=== PATIENT | male | born 1935 | race Two or more races ===

== ENCOUNTER 2019-12-06 02:27 | Inpatient (IN) | payer MEDICARE ==
[~2019-12-06] VITALS: Ht 170.2 cm; Wt 56.7 kg
--- NOTE | 2019-12-06 02:35 | NUR ---
Patient brought in by rescue ambulance 90 for fever and shortness of breath from [facility]. Placed in bed 1A. Patient noted tachypneic, tachycardic and with rectal temp noted 100.6. Dr. Garcia made aware. Dr. Garcia at bedside on patient's arrival. Patient placed on bedside monitor. EKG done by Zeeshan NGUYEN. Awaiting MD orders.
[2019-12-06] MEDS ORDERED: VANCOMYCIN IV 1,000 MG in IV DEXTROSE 5% 250 ML IV ONE (02:45)
[2019-12-06] MEDS ORDERED: IV NORMAL SALINE 1000 ML BAG IV ONE (02:45)
[2019-12-06] MEDS ORDERED: GENTAMICIN SULFATE INJ 80 MG in IV DEXTROSE 5% 100 ML IV ONE (02:45)
[2019-12-06] MEDS ORDERED: CEFTRIAXONE 1 G in IV DEXTROSE 5% 50 ML IV ONE (02:45)
[2019-12-06] MEDS ORDERED: CEFTRIAXONE 1 G VIAL ONE (02:54)
--- NOTE | 2019-12-06 03:14 | NUR ---
Zuleta catheter inserted using sterile technique. Tolerated well.
[2019-12-06] MEDS ORDERED: GENTAMICIN SULFATE 80 MG/2 ML VIAL ONE (03:16)
[2019-12-06 03:19] LABS: CREATININE 0.9 mg/dL (0.6-1.3); POTASSIUM 3.6 mmol/L (3.5-5.1)
[2019-12-06 03:20] LABS: BASOPHILS % (AUTO) 0.2 % (0.0-2.0); EOSINOPHILS % (AUTO) 0.1 % (0.0-7.0); HEMATOCRIT 28.8 % (36.7-47.1); HEMOGLOBIN 9.3 g/dL (12.5-16.3); MEAN CORPUSCULAR HEMOGLOBIN 31.1 uug (23.8-33.4); MEAN CORPUSCULAR HGB CONC 33 g/dL (32.5-36.3); MEAN CORPUSCULAR VOLUME 95.7 fL (73.0-96.2); MONOCYTES # (AUTO) 0.6 K/uL (2.0-10.0); MONOCYTES % (AUTO) 4.1 % (0.0-11.0); NEUTROPHILS # (AUTO) 12.5 K/uL (1.8-8.9); NEUTROPHILS % (AUTO) 82.6 % (38.5-71.5); PLATELET COUNT (AUTO) 423 K/uL (152-348); WHITE BLOOD COUNT (AUTO) 15.2 K/uL (3.6-10.2)
[2019-12-06 03:32] LABS: BILIRUBIN,DIRECT 0.3 mg/dL (0.0-0.2); BILIRUBIN,TOTAL 0.6 mg/dL (0.2-1.0); TOTAL PROTEIN, SERUM 7.6 g/dL (6.4-8.2)
--- NOTE | 2019-12-06 04:25 | NUR ---
requested for neil bed from [facility]
--- NOTE | 2019-12-06 04:35 | NUR ---
Recieved rm [id number]
--- NOTE | 2019-12-06 04:54 | NUR ---
Spoke with Shahnaz at [facility], stated Dr. Dudley is transformation lead and will page her.
--- NOTE | 2019-12-06 04:56 | NUR ---
Dr. Garcia speaking with Dr. Dudley
--- NOTE | 2019-12-06 04:58 | NUR ---
per Dr. Garcia, Dr. Dudley accepted the patient.
--- NOTE | 2019-12-06 05:00 | NUR ---
spoke with Stiven in [facility], states he does not have a nurse for the patient and he will call back in a few.
[2019-12-06] MEDS ORDERED: VANCOMYCIN IV 200 ML ONE (05:03)
[2019-12-06 05:31] LABS: *BILIRUBIN,URIN NEGATIVE (NEGATIVE); *BLOOD, URINE NEGATIVE (NEGATIVE); *CLARITY,URINE CLEAR (CLEAR); *COLOR,URINE YELLOW (YELLOW); *KETONES,URINE TRACE (NEGATIVE); LEUKOCYTE ESTERASE ,URINE NEGATIVE (NEGATIVE); NITRITE, URINE NEGATIVE (NEGATIVE); UGLUCOSE NEGATIVE (NEGATIVE)
--- NOTE | 2019-12-06 05:36 | NUR ---
Report given to Lisseth NGUYEN in [place].
--- NOTE | 2019-12-06 06:10 | NUR ---
RECD PT VIA [facility] FROM ER,ACCOMPANIED BY ER NURSES AND RELATIVES.TRANFERRED TO BED,AND POSITIONED COMFORTABLY, COMPLAINTS OF FEVER AND TACHYPNEA.PT IS ON 100% MIST THRU TRACHEOSTOMY TUBE,ALERT ,ORIENTEDX1,IV SITE ONRT WRIST PATENT AND INTACT ,VANCOMYCIN IVPB INFUSING WELL W/O PROBLEMS.G TUBE IN PLACE, HANSEN CATH PATENT AND DRAINING FAIRLY WELL.RECTAL TUBE PRESENT W/ SMALL AMT OF FECAL MATERIAL NOTED ON THE BAG.SKIN WARM AND DRY TO TOUCH. ADMISSION CARE INITIATED.ON TELE-TD ACCOMODATION .
[2019-12-06] MEDS ORDERED: ACETAMINOPHEN 325 MG TABLET PO PRN (06:15)
[2019-12-06] MEDS ORDERED: ONDANSETRON 4 MG/2 ML VIAL IV PRN (06:15)
[2019-12-06] MEDS ORDERED: MAGNESIUM HYDROXIDE 30 ML LIQUID UDC PO PRN (06:15)
[2019-12-06] MEDS ORDERED: HYDROCODONE/APAP 5-325MG TABLET PO PRN (06:15)
[2019-12-06] MEDS ORDERED: ZOLPIDEM 5 MG TABLET PO PRN (06:15)
[2019-12-06] MEDS ORDERED: PIPERACILLIN SODIUM/TAZOBACTAM 3.375 G in IV DEXTROSE 5% 50 ML IV SCH (07:00)
[2019-12-06] MEDS ORDERED: PIPERACILLIN SODIUM/TAZOBACTAM 3.375 G in IV DEXTROSE 5% 50 ML IV ONE (07:00)
[2019-12-06 07:16] LABS: WBC,URINE 0-3 /HPF (0-3)
[2019-12-06 07:17] LABS: BACTERIA,URINE FEW /HPF (NONE SEEN); RBC,URINE 0-3 /HPF (0-3); SQUAMOUS EPITHELIAL CELL,UR FEW /HPF (NONE SEEN)
[2019-12-06 07:30] VITALS: BP 118/71
[2019-12-06 08:00] VITALS: BP 118/71
--- NOTE | 2019-12-06 08:00 | NUR ---
Family member at bedside. Fall, seizure, and aspiration precaution implemented. Noted old scab/scar on right medial toe. IV on right hand patent. Left side weakness noted. Pt has helmet on to protect craniotomy procedure done in SEP 2019. Pt alert x 2 forgetful at times. G-J tube intact and patent and audible in stomach without any residual noted. Rectal tube intact and draining liquid brown/black stool. Tele SNR @ 90's. Pt is in no acute distress. Call light is within reach.
--- NOTE | 2019-12-06 10:56 | NUR ---
CLINICAL PHARMACY NOTE: VANCOMYCIN PHARMACY TO DOSE Subjective: To start vancomycin in this 84 y/o male for indication of osteomyelitis. Also on zosyn Objective: weight 58kg height 170cm BUN/SCr 24/0.9 wbc 15.2 temp 98.4 1gm given in ER 12/06 ~0300 Assessment/Plan As renal function appears stable, will start vanco regimen of 1gm q20hrs for estimated trough of 16.17, second dose tonight at 2300. Will check trough before 4th scheduled dose (not ordered yet). Will also monitor renal function and adjust if were to change. Will follow
[2019-12-06 11:11] VITALS: BP 118/71
--- NOTE | 2019-12-06 11:30 | NUR ---
Notified Dr Kinney pt is diabetic and getting lantus. Awaiting orders for bs check.
--- NOTE | 2019-12-06 12:00 | NUR ---
Dr Kinney here to see patient. Awaiting medication reconciliation and admitting orders.
[2019-12-06] MEDS ORDERED: LORAZEPAM JT PRN (13:30)
[2019-12-06] MEDS ORDERED: METOCLOPRAMIDE HCL 10 MG/10 ML UDC JT PRN (13:30)
[2019-12-06] MEDS ORDERED: ALBUTEROL SULFATE 2.5 MG/ 0.5 ML NEBU NEB PRN ×2 (13:30→14:30)
[2019-12-06] MEDS ORDERED: SIMETHICONE 40 MG/0.6 ML, 30ML BOTTLE JT PRN (13:30)
[2019-12-06] MEDS ORDERED: LORAZEPAM JT SCH (13:30)
[2019-12-06] MEDS: PIPERACILLIN/TAZOBACTAM/D5W 3.375 G in IV DEXTROSE 5% 50 ML IV SCH ×2 (14:29→22:10)
[2019-12-06] MEDS ORDERED: LORAZEPAM 0.5 MG TABLET JT PRN (14:45)
[2019-12-06] MEDS ORDERED: LORAZEPAM 0.5 MG TABLET GT PRN (15:50)
[2019-12-06] MEDS ORDERED: METOCLOPRAMIDE HCL 10 MG/10 ML UDC GT PRN (15:50)
[2019-12-06] MEDS ORDERED: MAGNESIUM HYDROXIDE 30 ML LIQUID UDC GT PRN (15:50)
[2019-12-06] MEDS ORDERED: SIMETHICONE 40 MG/0.6 ML, 30ML BOTTLE GT PRN (15:50)
[2019-12-06] MEDS ORDERED: ZOLPIDEM 5 MG TABLET GT PRN (15:51)
[2019-12-06] MEDS: CHLORHEXIDINE GLUCONATE 15 ML MOUTHWASH MM SCH (16:55)
[2019-12-06] MEDS: TRIAMCINOLONE ACET 0.1% OINT 60 GM TUBE TP SCH (16:55)
[2019-12-06] MEDS: FERROUS SULFATE 300 MG/5 ML LIQUID UDC GT SCH (16:56)
[2019-12-06] MEDS: POLYVINYL ALCOHOL OPHT DROPS 15 ML BOTTLE EACHEYE SCH ×2 (16:56→22:00)
[2019-12-06] MEDS: HYDROCODONE/APAP 5-325MG TABLET GT PRN (16:57)
[2019-12-06] MEDS ORDERED: LEVETIRACETAM 500 MG TABLET JT SCH (17:00)
[2019-12-06] MEDS ORDERED: DEXTRAN OP SCH (18:00)
[2019-12-06] MEDS ORDERED: HYPROMELLOSE OP SCH (18:00)
--- NOTE | 2019-12-06 18:30 | NUR ---
Pt is in no acute distress. Plan of care effective. Pt suctioned greenish/brown phlegm. Pt on Portex 8 with Pmist 28%. Trachea care done by R.T. Call light is within reach.
[2019-12-06] MEDS ORDERED: GLUCERNA 1.2 1000ML LIQUID GT SCH (20:30)
--- NOTE | 2019-12-06 20:30 | NUR ---
NOTIFY SANDRA KEE CUSTOMER RELATIONS ADVISOR THAT PATIENT IS DIABETIC AND PATIENT IS NPO, AND NO JT FEEDING. CHILANGO HAS NEW ORDER.
[2019-12-06 20:43] VITALS: BP 135/72
[2019-12-06] MEDS ORDERED: ASCORBIC ACID 100 MG JT SCH (21:00)
[2019-12-06] MEDS ORDERED: Medication Not On Formulary EA (Multivitamins W-Minerals (Multivitamin With Minerals) 1 JT SCH (21:00)
--- NOTE | 2019-12-06 23:01 | NUR ---
PATIENT HAS J TUBE RESIDUAL OF 400CC GREENISH COLOR, PATIENT IS NOT ON FEEDING AT ALL. NOTIFY SANDRA KEE WITH ORDER TO HOLD TUBE FEEDING AND MEDICATION AT THIS TIME. WILL MONITOR FOR RESIDUAL.
[2019-12-06] MEDS: IV D5/ 0.9% NACL 1,000 ML IV PRN (23:07)
[2019-12-06] MEDS: INSULIN GLARGINE,HUM 300 UNITS/3 ML CARTRIDGE SQ SCH (23:47)
[2019-12-07] VITALS: BP 128/61
--- NOTE | 2019-12-07 | NUR ---
J TUBE FEEDING CONTINUE TO HOLD AND MEDICATIONS WAS ON HOLD, PER MD ORDER. RECHECK J TUBE RESIDUAL OBTAINED 200CC GREENISH COLOR FLUIDS. ALL VIA J TUBE MEDICATIONS AND FLUSHES NOT GIVEN. WILL NOTIFY MD DEPUTY FIRE CHIEF.
--- NOTE | 2019-12-07 01:30 | NUR ---
NOTIFY DR. WALLER THAT PATIENT STILL HAS A RESIDUAL OF 200CC GREENISH FLUIDS DESPITE ALL VIA J TUBE MEDICATIONS AND FLUSHES NOT GIVEN, MD TO HOLD ALL MEDICATIONS AND FEEDING PLUS WATER FLUSHES AT THIS TIME.
[2019-12-07] MEDS: VANCOMYCIN IV 1,000 MG in IV DEXTROSE 5% 250 ML IV SCH ×2 (02:06→19:46)
[2019-12-07] MEDS: POLYVINYL ALCOHOL OPHT DROPS 15 ML BOTTLE EACHEYE SCH ×4 (02:45→19:47)
[2019-12-07 05:00] VITALS: BP 125/57
[2019-12-07] MEDS: PIPERACILLIN/TAZOBACTAM/D5W 3.375 G in IV DEXTROSE 5% 50 ML IV SCH ×3 (05:35→21:24)
--- NOTE | 2019-12-07 06:05 | NUR ---
PATIENT ALERT BUT FORGETFUL, NO SOB NO CHEST PAIN, PATIENT TRACH INTACT, SUCTION WITH MODERATE AMOUNT YELLOW COLOR SPUTUM. J TUBE INTACT, PATIENT HAS J TUBE RESIDUAL OF 200CC OF GREENISH COLOR FLUIDS. PATIENT RECTAL TUBE IRRIGATED WITH PASTY BROWNISH COLOR FECES IN SMALL AMOUNT. TURN AND REPOSITION, CONT TO MONITOR.
[2019-12-07 06:48] LABS: CREATININE 0.9 mg/dL (0.6-1.3); MAGNESIUM 1.7 mg/dL (1.8-2.4); PHOSPHOROUS 3.3 mg/dL (2.5-4.9); POTASSIUM 3.3 mmol/L (3.5-5.1)
[2019-12-07 07:07] LABS: BASOPHILS % (AUTO) 0.6 % (0.0-2.0); EOSINOPHILS # (AUTO) 0.1 K/uL (0.0-0.7); EOSINOPHILS % (AUTO) 1.4 % (0.0-7.0); MONOCYTES # (AUTO) 0.4 K/uL (2.0-10.0); NEUTROPHILS # (AUTO) 5.7 K/uL (1.8-8.9)
[2019-12-07 07:19] LABS: LYMPHOCYTES # (AUTO) 1.4 K/uL (20.0-40.0); LYMPHOCYTES % (AUTO) 18.5 % (20.5-51.5); MEAN CORPUSCULAR HGB CONC 33 g/dL (32.5-36.3); MEAN CORPUSCULAR VOLUME 96.9 fL (73.0-96.2); MONOCYTES % (AUTO) 5.1 % (0.0-11.0); NEUTROPHILS % (AUTO) 74.4 % (38.5-71.5); RED BLOOD CELL COUNT(AUTO) 2.35 MIL/uL (4.06-5.63)
[2019-12-07 07:20] LABS: HEMATOCRIT 22.8 % (36.7-47.1); HEMOGLOBIN 7.5 g/dL (12.5-16.3); PLATELET COUNT (AUTO) 296 K/uL (152-348); WHITE BLOOD COUNT (AUTO) 7.7 K/uL (3.6-10.2)
[2019-12-07 07:54] VITALS: BP 123/62
--- NOTE | 2019-12-07 08:00 | NUR ---
Pt is in no acute distress. Pt more awake today than yesterday. Pt able to talk with his daughter with single words. Tele SNR @ 90's again. Skin care and prevention implemented to turn pt q 2 hrs. PT has a GJ tube labeled jejunum and gastric on the Y tube. No residual on G tube side of the G-J tube. Pt had 50cc residual noted on the J TUBE side of the GJ TUBE. Will check with hospitalist when and where the feeding will be inserted Jejunum vs Gastric.
[2019-12-07] MEDS: TRIAMCINOLONE ACET 0.1% OINT 60 GM TUBE TP SCH ×2 (08:51→16:14)
[2019-12-07] MEDS: FERROUS SULFATE 300 MG/5 ML LIQUID UDC GT SCH ×2 (08:51→16:14)
[2019-12-07] MEDS: SPIRONOLACTONE 25 MG TABLET GT SCH ×3 (08:51→21:03)
[2019-12-07] MEDS: CHLORHEXIDINE GLUCONATE 15 ML MOUTHWASH MM SCH ×2 (08:51→16:15)
[2019-12-07] MEDS: LEVETIRACETAM 500 MG/5 ML LIQUID UDC GT SCH ×3 (08:51→21:03)
[2019-12-07] MEDS ORDERED: ASCORBIC ACID 500 MG TABLET JT SCH (09:00)
--- NOTE | 2019-12-07 09:08 | NUR ---
CLINICAL PHARMACY NOTE: VANCOMYCIN PHARMACY TO DOSE Subjective: To continue vancomycin in this 84 y/o male for indication of osteomyelitis. Also on zosyn Objective: weight 58kg height 170cm BUN/SCr 18/0.9 wbc 7.7 temp 97.7 Trough pending tomorrow at 1430 Assessment/Plan As renal function appears stable, will continue vanco regimen of 1gm q20hrs for estimated trough of 16.17, third dose tonight at 1900. Will check trough before 4th scheduled dose (due tomorrow at 1430). Will check level when available and adjust as appropriate. Will follow
--- NOTE | 2019-12-07 09:30 | NUR ---
Witnessed pt's daughter Deana giving pt sips of water. Instructed family not to give anything oral on pt until cleared by ST. Daughter verbalized understanding.
--- NOTE | 2019-12-07 10:00 | NUR ---
Pt seen by Physical therapy for evaluation.
[2019-12-07] MEDS ORDERED: POTASSIUM CHLORIDE 20 MEQ POWDER PACKET GT ONE ×3 (10:30→12:45)
[2019-12-07] MEDS ORDERED: POTASSIUM CHLORIDE 10 MEQ TAB.PRT.SR PO SCH (10:45)
[2019-12-07] MEDS: MAGNESIUM SULFATE/D5W 100 ML IV SCH ×2 (11:18→12:55)
[2019-12-07 11:36] VITALS: BP 127/59
--- NOTE | 2019-12-07 12:00 | NUR ---
Feedings to be restarted at the Jejunum tube side of the GJtube. Per old record notes from [facility] discharge summary. Awaiting for dietary evaluation on proper feedings and goal rate.
[2019-12-07 15:36] VITALS: BP 119/53
--- NOTE | 2019-12-07 18:04 | NUR ---
Start feeding per dietary recommendations pt has 25cc residual on the JEJUNUM side of the GJTUBE. Will start feeding at slow rate of 10cc/hr as ordered. PT is in no acute distress.
[2019-12-07] MEDS: HYDROCODONE/APAP 5-325MG TABLET GT PRN (18:30)
[2019-12-07 20:00] VITALS: BP 114/57
[2019-12-07] MEDS ORDERED: DEXTROSE 50% 50 ML DISP.SYRIN IV PRN (20:00)
--- NOTE | 2019-12-07 20:00 | NUR ---
Received patient lying in bed. Asleep, arouse to tactile stimuli. In no acute distress. Tracheostomy in place. O2 at 6LPM via trach. O2 at 98%. Sinus tachy on tele at 104/min. IV site on right FA and right wrist intact and patent. IVF infusing on right wrist area. GJ tube intact and patent. No residual noted on both G Tube and J tube when aspirated. Zuleta catheter intact and draining via gravity. Rectal tube intact with moderate amount of stool noted. Daughter at bedside. Continue to monitor.
[2019-12-07] MEDS: VITAL AF 1.2 1,000 ML LIQUID GT PRN (20:33)
--- NOTE | 2019-12-07 20:33 | NUR ---
Started on Vital 1.2 10cc/hr via J tube. Continue to monitor.
[2019-12-07] MEDS: SENNOSIDES 1 TABLET GT SCH ×2 (21:00)
[2019-12-07] MEDS: ATORVASTATIN 40 MG TABLET GT SCH ×2 (21:03)
[2019-12-07] MEDS: ASCORBIC ACID 500 MG TABLET GT SCH ×2 (21:03)
[2019-12-07] MEDS: MULTIVIT, IRON, MIN NO. 8, FA TABLET GT SCH ×2 (21:04)
[2019-12-07] MEDS: INSULIN GLARGINE,HUM 300 UNITS/3 ML CARTRIDGE SQ SCH (21:05)
--- NOTE | 2019-12-07 21:22 | NUR ---
Senokot not given due to presence of stool on rectal tube.
--- NOTE | 2019-12-07 22:00 | NUR ---
Noted feeding pump not rotating. Replace feeding pump and started Vital 1.2 at 10cc/hr at this time.
[2019-12-08] VITALS (8 sets, daily range): BP systolic 102–134; BP diastolic 44–68
[2019-12-08] MEDS: BLOOD SUGAR DIAGNOSTIC 1 EACH STRIP VI SCH ×4 (00:11→17:10)
[2019-12-08] MEDS: IV D5/ 0.9% NACL 1,000 ML IV PRN (01:07)
--- NOTE | 2019-12-08 02:00 | NUR ---
Aspirated J tube noted with 15ml residual. G tube with no residual. Increased Vital 1.2 to 20cc/hr.
[2019-12-08] MEDS: POLYVINYL ALCOHOL OPHT DROPS 15 ML BOTTLE EACHEYE SCH ×4 (02:21→20:58)
[2019-12-08] MEDS: PIPERACILLIN/TAZOBACTAM/D5W 3.375 G in IV DEXTROSE 5% 50 ML IV SCH ×3 (05:55→21:01)
--- NOTE | 2019-12-08 06:30 | NUR ---
Aspirated J tube noted with no residual. G tube with no residual. Increased Vital 1.2 to 30cc/hr.
[2019-12-08] MEDS: INSULIN REGULAR, HUMAN 300 UNIT/3 ML VIAL SQ PRN (07:00)
--- NOTE | 2019-12-08 07:00 | NUR ---
Patient AAOX1-2. In no acute distress. Tracheostomy in place. O2 at 6LPM via trach. O2 at 98%. Suctioned secretions PRN. IV site on right FA and right wrist intact and patent.No adverse effect noted from IV ABX. GJ tube intact and patent. Vital 1.2 infusing at 30ml/hr. Zuleta catheter intact and draining via gravity. Rectal tube intact. Safety measure maintained and call arreola within reached.
[2019-12-08 07:12] LABS: BASOPHILS % (AUTO) 0.6 % (0.0-2.0); EOSINOPHILS # (AUTO) 0.2 K/uL (0.0-0.7); EOSINOPHILS % (AUTO) 3.2 % (0.0-7.0); HEMATOCRIT 21.2 % (36.7-47.1); LYMPHOCYTES # (AUTO) 1.5 K/uL (20.0-40.0); LYMPHOCYTES % (AUTO) 21.3 % (20.5-51.5); MEAN CORPUSCULAR HEMOGLOBIN 31.5 uug (23.8-33.4); MEAN CORPUSCULAR HGB CONC 33 g/dL (32.5-36.3); MEAN CORPUSCULAR VOLUME 96.4 fL (73.0-96.2); MONOCYTES # (AUTO) 0.3 K/uL (2.0-10.0); MONOCYTES % (AUTO) 4.6 % (0.0-11.0); NEUTROPHILS # (AUTO) 4.9 K/uL (1.8-8.9); NEUTROPHILS % (AUTO) 70.3 % (38.5-71.5); PLATELET COUNT (AUTO) 308 K/uL (152-348)
[2019-12-08 07:24] LABS: CREATININE 0.8 mg/dL (0.6-1.3); MAGNESIUM 1.9 mg/dL (1.8-2.4); PHOSPHOROUS 3.2 mg/dL (2.5-4.9); POTASSIUM 3.9 mmol/L (3.5-5.1)
--- NOTE | 2019-12-08 07:30 | NUR ---
Zero cc residual on the Jtube site tubing where feeding of Vital 30cc is running. zero residual Gtube site. Will increase to 40cc @1000am if pt tolerating feeding. Aspiration, seizure, and fall precaution implemented. Pt is in no acute distress. Call light is within reach.
[2019-12-08 07:31] LABS: HEMOGLOBIN 6.9 g/dL (12.5-16.3)
[2019-12-08 07:49] LABS: EOSINOPHILS % (MANUAL) 3 % (0-8); LYMPHOCYTES % (MANUAL) 13 % (20-40); MONOCYTES % (MANUAL) 4 % (2-10); NEUTROPHILS % (MANUAL) 80 % (42-75)
[2019-12-08] MEDS: CHLORHEXIDINE GLUCONATE 15 ML MOUTHWASH MM SCH ×2 (08:00→17:06)
[2019-12-08] MEDS: LEVETIRACETAM 500 MG/5 ML LIQUID UDC GT SCH ×2 (08:00→20:58)
[2019-12-08] MEDS: FERROUS SULFATE 300 MG/5 ML LIQUID UDC GT SCH ×2 (08:00→17:06)
[2019-12-08] MEDS: SPIRONOLACTONE 25 MG TABLET GT SCH ×2 (08:00→20:59)
[2019-12-08] MEDS: TRIAMCINOLONE ACET 0.1% OINT 60 GM TUBE TP SCH ×2 (08:00→17:07)
--- NOTE | 2019-12-08 10:00 | NUR ---
250 residual on Jtube site. Residual was greenish fluid. Stopped feeding. Notified hospitalist of residual. Pt tolerated physical therapy. Addendum: 12/08/19 at 1140 by DILCIA SINGH RN Gastric residual @ 50cc with greenish fluid as well.
--- NOTE | 2019-12-08 11:00 | NUR ---
250cc residual noted on JTUBE again and 100cc residual noted on gtube site. Hospitalist aware. Held tube feeding will recheck in 4 hrs for residual as ordered.
[2019-12-08] MEDS: HYDROCODONE/APAP 5-325MG TABLET GT PRN (11:13)
--- NOTE | 2019-12-08 12:00 | NUR ---
Sent stool for ob to lab.
[2019-12-08 14:21] LABS: *OCCULT BLOOD STOOL POSITIVE (NEGATIVE)
--- NOTE | 2019-12-08 15:15 | NUR ---
J-tube residual is 300cc and g tube residual is 10cc. pt positive stool for ob. Notified hospitalist will hold feeding and recheck in another 4 hrs.
--- NOTE | 2019-12-08 15:22 | NUR ---
CLINICAL PHARMACY NOTE: VANCOMYCIN PHARMACY TO DOSE Subjective: To continue vancomycin in this 84 y/o male for indication of osteomyelitis. Also on zosyn Objective: weight 58kg height 170cm BUN/SCr 14/0.8 wbc 7.0 temp 98.4 Trough on 12/08 at 1430: 16.7 Assessment/Plan Since vanco trough level is within therapeutic range, will continue same dose of vanco 1gm IVPB q20hrs for now. Will monitor renal function & adjust as appropriate. Will follow
--- NOTE | 2019-12-08 15:36 | NUR ---
Courtesy call made to DR Zambrano's office spoke with nita secretary administrative assistant for GI evaluation request of ida angulo.
[2019-12-08] MEDS: VANCOMYCIN IV 1,000 MG in IV DEXTROSE 5% 250 ML IV SCH (15:43)
--- NOTE | 2019-12-08 18:30 | NUR ---
bLOOD TRANSFUSION CONSENT signed by Deana Rice Daughter wtih DPOA. PT is in no acute distress. Call light is within reach. Called Lab ETA of blood In 3hrs. No fall noted this shift.
[2019-12-08] MEDS: MULTIVIT, IRON, MIN NO. 8, FA TABLET GT SCH (20:58)
[2019-12-08] MEDS: ASCORBIC ACID 500 MG TABLET GT SCH (20:59)
[2019-12-08] MEDS: ATORVASTATIN 40 MG TABLET GT SCH (20:59)
[2019-12-08] MEDS: SENNOSIDES 1 TABLET GT SCH (20:59)
[2019-12-08] MEDS: INSULIN GLARGINE,HUM 300 UNITS/3 ML CARTRIDGE SQ SCH (21:00)
[2019-12-09] VITALS (9 sets, daily range): BP systolic 112–129; BP diastolic 59–78
[2019-12-09] MEDS: BLOOD SUGAR DIAGNOSTIC 1 EACH STRIP VI SCH ×4 (00:08→17:43)
[2019-12-09] MEDS: POLYVINYL ALCOHOL OPHT DROPS 15 ML BOTTLE EACHEYE SCH ×4 (03:34→21:17)
[2019-12-09] MEDS: PIPERACILLIN/TAZOBACTAM/D5W 3.375 G in IV DEXTROSE 5% 50 ML IV SCH ×3 (05:12→22:36)
--- NOTE | 2019-12-09 06:42 | NUR ---
END OF SHIFT REPORT 1929 PT WAS REPOSITIONED; CLEANED PERIANALLY FOR RECTAL TUBE LEAKING; MANIPULATED RECTAL TUBE; 2029h FOLLOWED UP BLOOD FROM BLOOD BANK AND BLOOD NOT YET AVAILABLE; 2129 bLOOD NOT YET READY; NEEDS RETYPING PER CONE RUNNER; [address] Guillen 70 ML RESIDUAL FR JTUBE; PER DR OLSON TO START GTF PREVIOUSLY ORDERED PT RECEIVED HIS BLOOD WITHOUT COMPLICATIONS; REPOSITIONED AND MADE COMFORTABLE;
[2019-12-09 07:04] LABS: BASOPHILS # (AUTO) 0.1 K/uL (0.0-8.0); BASOPHILS % (AUTO) 0.7 % (0.0-2.0); EOSINOPHILS # (AUTO) 0.2 K/uL (0.0-0.7); EOSINOPHILS % (AUTO) 3.5 % (0.0-7.0); HEMATOCRIT 27.5 % (36.7-47.1); HEMOGLOBIN 9.3 g/dL (12.5-16.3); LYMPHOCYTES # (AUTO) 1.8 K/uL (20.0-40.0); LYMPHOCYTES % (AUTO) 25.6 % (20.5-51.5); MEAN CORPUSCULAR HGB CONC 34 g/dL (32.5-36.3); MEAN CORPUSCULAR VOLUME 92.1 fL (73.0-96.2); MONOCYTES # (AUTO) 0.4 K/uL (2.0-10.0); MONOCYTES % (AUTO) 5.5 % (0.0-11.0); NEUTROPHILS # (AUTO) 4.5 K/uL (1.8-8.9); NEUTROPHILS % (AUTO) 64.7 % (38.5-71.5); PLATELET COUNT (AUTO) 347 K/uL (152-348); RED BLOOD CELL COUNT(AUTO) 2.99 MIL/uL (4.06-5.63)
[2019-12-09 07:18] LABS: CREATININE 0.7 mg/dL (0.6-1.3); MAGNESIUM 1.6 mg/dL (1.8-2.4); PHOSPHOROUS 4.1 mg/dL (2.5-4.9); POTASSIUM 3.8 mmol/L (3.5-5.1)
--- NOTE | 2019-12-09 08:00 | NUR ---
RESTING COMFORTABLY IN BED WITH AEROSOL VIA TRACH AT 6L/28% MIST SATURATING 98%. GOOD ORAL CARE DONE. ASPIRATION PRECAUTION OBSERVED. AM CARE GIVEN WITH MAXIMUM ASSIST.
[2019-12-09] MEDS: FERROUS SULFATE 300 MG/5 ML LIQUID UDC GT SCH ×2 (09:23→16:13)
[2019-12-09] MEDS: SPIRONOLACTONE 25 MG TABLET GT SCH ×2 (09:23→22:25)
[2019-12-09] MEDS: LEVETIRACETAM 500 MG/5 ML LIQUID UDC GT SCH ×2 (09:23→22:25)
[2019-12-09] MEDS: CHLORHEXIDINE GLUCONATE 15 ML MOUTHWASH MM SCH ×2 (09:24→16:14)
[2019-12-09] MEDS: TRIAMCINOLONE ACET 0.1% OINT 60 GM TUBE TP SCH ×2 (09:24→16:14)
[2019-12-09] MEDS: Z GUARD REMEDY PASTE 57 GM TUBE TOP PRN (09:25)
[2019-12-09] MEDS: VANCOMYCIN IV 1,000 MG in IV DEXTROSE 5% 250 ML IV SCH (11:40)
[2019-12-09] MEDS: INSULIN REGULAR, HUMAN 300 UNIT/3 ML VIAL SQ PRN (11:44)
--- NOTE | 2019-12-09 11:45 | NUR ---
SEEN BY Jessica SINGH DNP MADE AWARE OF HIGH VOLUME RESIDUAL AND SAID TO CONTINUE FEEDING AT 30 ML/HR TOLERATED. SEE NOTES
[2019-12-09] MEDS: MAGNESIUM SULFATE/D5W 100 ML IV SCH ×2 (12:15→13:09)
--- NOTE | 2019-12-09 13:00 | NUR ---
SEEN BY DR ALVAREZ SEE NOTES PATIENT REMAINS SR ON MONITOR
--- NOTE | 2019-12-09 13:30 | NUR ---
SEEN BY SPEECH THERAPIST FOR EVAL. RECOMMENDED NPO AND FOLLOW-UP VIDEO SWALLOW IN AM
--- NOTE | 2019-12-09 14:33 | NUR ---
CLINICAL PHARMACY NOTE: VANCOMYCIN PHARMACY TO DOSE Subjective: To continue vancomycin in this 84 y/o male for indication of osteomyelitis. Also on zosyn Objective: weight 58kg height 170cm BUN/SCr 12/0.7 wbc 7.0 temp 98.3 Trough on 12/08 at 1430: 16.7 Assessment/Plan Since renal function has remained stable and vanco trough level is within therapeutic range, will continue same dose of vanco 1gm IVPB q20hrs for now. Will monitor renal function & adjust as appropriate. Will follow
--- NOTE | 2019-12-09 15:50 | NUR ---
1444 eyedrop not given patient is sleeping
[2019-12-09] MEDS: ACETAMINOPHEN 325 MG TABLET GT PRN (16:13)
--- NOTE | 2019-12-09 20:15 | NUR ---
@2000:TELEPHONE CALL TO CAIT SINGH, INFORMED THAT PATIENT HAS A RESIDUAL OF 1600ML ON GASTROSTOMY TUBE, DARK GREEN IN COLOR. JT WITH ONLY 30ML OF SHORT GOODS DRIER GREEN RESIDUAL AND PLACE BACK ON THE PATIENT. CAIT SINGH INSTRUCTED THIS NURSE TO DISCARD ALL CONTENT OBTAINED FROM GASTROSTOMY TUBE (1600ML) AND RECHECK RESIDUAL ON GASTROSTOMY TUBE EVERY 4 HOURS, GASTRIC CONTENT LESS THAN OR EQUAL TO 250ML TO PLACE BACK ON PATIENT STOMACH AND DISCARD GASTRIC CONTENT GREATER THAN 250ML. ORDER READ BACK AND VERIFIED. @2009:CAIT SINGH WITH ORDER TO DO CT ABD/PELVIS WITH CONTRAST. ORDER NOTED AND WILL CARRY OUT.
[2019-12-09] MEDS ORDERED: IOHEXOL 300MG/ML 100 ML INFUS..BTL ONE (20:31)
[2019-12-09] MEDS ORDERED: IV NORMAL SALINE 250 ML IV ONE (20:31)
[2019-12-09] MEDS ORDERED: SWABABLE VALVE TRANSFER SET EA MC ONE (20:31)
[2019-12-09] MEDS: SENNOSIDES 1 TABLET GT SCH (21:00)
--- NOTE | 2019-12-09 21:11 | NUR ---
PATIENT DAUGHTER SIGNED IC FOR CT ABDOMEN/PELVIS WITH CONTRAST. TELEPHONE CALL TO RADIOLOGIST TIMOTEO THAT PATIENT IS READY FOR CT.
--- NOTE | 2019-12-09 21:30 | NUR ---
PATIENT TAKEN TO CT ACCOMPANIED BY RT/DANIEL AND CHARGE NURSE DARRELL.
--- NOTE | 2019-12-09 22:02 | NUR ---
back from ct scan , procedure tolerated well, no acute distress noted. tele reading sinus.repositioned for comfort.
[2019-12-09] MEDS: MULTIVIT, IRON, MIN NO. 8, FA TABLET GT SCH (22:25)
[2019-12-09] MEDS: ASCORBIC ACID 500 MG TABLET GT SCH (22:25)
[2019-12-09] MEDS: ATORVASTATIN 40 MG TABLET GT SCH (22:25)
[2019-12-09] MEDS: INSULIN GLARGINE,HUM 300 UNITS/3 ML CARTRIDGE SQ SCH (22:26)
--- NOTE | 2019-12-09 23:12 | NUR ---
CT ABD/PELVIS WITH CONTRAST RESULTED AND INFORMED INFORMATION CLERK CASHIER SAMANTHA OF RESULT WITH NO NEW ORDER GIVEN. PATIENT ASLEEP AT THIS TIME AND APPEARS COMFORTABLE. IN NO ACUTE DISTRESS. SINUS TACHY ON TELE AT 101/MIN WITH OCCASIONAL PVC'S. CONTINUE TO MONITOR PATIENT.
[2019-12-10] VITALS (7 sets, daily range): BP systolic 118–127; BP diastolic 58–71
[2019-12-10] MEDS: BLOOD SUGAR DIAGNOSTIC 1 EACH STRIP VI SCH ×5 (00:31→23:13)
--- NOTE | 2019-12-10 01:00 | NUR ---
CHECKED GJ TUBE RESIDUAL. OBTAIN 100ML OF GREENISH GASTRIC CONTENT ON JT AND PLACED BACK TO STOMACH. OBTAINED 680ML ON GT, RETURNED 250ML BACK TO STOMACH AND DISCARDED 430ML.
[2019-12-10] MEDS: POLYVINYL ALCOHOL OPHT DROPS 15 ML BOTTLE EACHEYE SCH ×4 (02:29→21:13)
--- NOTE | 2019-12-10 05:00 | NUR ---
CHECKED GJ TUBE RESIDUAL. 55ML RESIDUAL GREENISH GASTRIC CONTENT ON JT AND PLACED BACK TO STOMACH. NO RESIDUAL ON GT.
[2019-12-10] MEDS: PIPERACILLIN/TAZOBACTAM/D5W 3.375 G in IV DEXTROSE 5% 50 ML IV SCH ×3 (05:11→21:52)
[2019-12-10] MEDS: VANCOMYCIN IV 1,000 MG in IV DEXTROSE 5% 250 ML IV SCH (06:03)
--- NOTE | 2019-12-10 06:41 | NUR ---
Asleep, arouse to verbal and tactile stimuli. In no acute distress. Tracheostomy in place. O2 at 6LPM via trach. O2 at 99%. suction secretions PRN and able to obtain whitish secretions. NSR with occasional PVC's on tele at 82/min. IV site on right FA and right wrist intact and patent. No adverse reaction noted from IV ABX. GJ tube intact and patent. Zuleta catheter intact and draining via gravity. Rectal tube intact with stool present on tubing only. Turn and reposition for comfort. Safety measure maintained.
[2019-12-10 06:56] LABS: BASOPHILS # (AUTO) 0.1 K/uL (0.0-8.0); EOSINOPHILS # (AUTO) 0.2 K/uL (0.0-0.7); EOSINOPHILS % (AUTO) 2.7 % (0.0-7.0); HEMATOCRIT 28.2 % (36.7-47.1); HEMOGLOBIN 9.6 g/dL (12.5-16.3); LYMPHOCYTES # (AUTO) 1.7 K/uL (20.0-40.0); LYMPHOCYTES % (AUTO) 28.7 % (20.5-51.5); MEAN CORPUSCULAR HEMOGLOBIN 31.1 uug (23.8-33.4); MEAN CORPUSCULAR HGB CONC 34 g/dL (32.5-36.3); MEAN CORPUSCULAR VOLUME 91.6 fL (73.0-96.2); MONOCYTES # (AUTO) 0.4 K/uL (2.0-10.0); MONOCYTES % (AUTO) 6.4 % (0.0-11.0); NEUTROPHILS # (AUTO) 3.7 K/uL (1.8-8.9); NEUTROPHILS % (AUTO) 61.2 % (38.5-71.5); PLATELET COUNT (AUTO) 379 K/uL (152-348); RED BLOOD CELL COUNT(AUTO) 3.08 MIL/uL (4.06-5.63)
[2019-12-10 07:07] LABS: CREATININE 0.8 mg/dL (0.6-1.3); MAGNESIUM 2.1 mg/dL (1.8-2.4); PHOSPHOROUS 4.3 mg/dL (2.5-4.9); POTASSIUM 3.2 mmol/L (3.5-5.1)
--- NOTE | 2019-12-10 08:00 | NUR ---
AWAKE ALERT AND VERBALLY RESPONSIVE NO SS OF PAIN OR DISTRESS. WITH 6L/AEROSOL VIA TRACH SATURATING 98%. HOB ELEVATED 45 DEGREES. ASPIRATION PRECAUTION OBSERVED. SR ON MONITOR
--- NOTE | 2019-12-10 09:03 | NUR ---
CLINICAL PHARMACY NOTE: VANCOMYCIN PHARMACY TO DOSE Subjective: To continue vancomycin in this 84 y/o male for indication of osteomyelitis. Also on zosyn Objective: weight 58kg height 170cm BUN/SCr 12/0.8 wbc 6.0 temp 98.4 Trough on 12/08 at 1430: 16.7 Assessment/Plan Since renal function has remained stable and vanco trough level is within therapeutic range, will continue same dose of vanco 1gm IVPB q20hrs for now. Will monitor renal function & adjust as appropriate. Will follow
[2019-12-10] MEDS: LEVETIRACETAM 500 MG/5 ML LIQUID UDC GT SCH ×2 (09:06→21:13)
[2019-12-10] MEDS: POTASSIUM CHLORIDE 20 MEQ POWDER PACKET GT SCH ×3 (09:06→13:41)
[2019-12-10] MEDS: FERROUS SULFATE 300 MG/5 ML LIQUID UDC GT SCH ×2 (09:06→17:18)
[2019-12-10] MEDS: SPIRONOLACTONE 25 MG TABLET GT SCH ×2 (09:07→21:14)
[2019-12-10] MEDS: TRIAMCINOLONE ACET 0.1% OINT 60 GM TUBE TP SCH ×2 (09:09→17:19)
[2019-12-10] MEDS: CHLORHEXIDINE GLUCONATE 15 ML MOUTHWASH MM SCH ×2 (09:09→17:22)
[2019-12-10] MEDS ORDERED: POTASSIUM CHLORIDE 20 MEQ POWDER PACKET GT ONE (11:30)
--- NOTE | 2019-12-10 11:56 | NUR ---
SEEN BY HOSPITALIST MADE AWARE OF GT/JJ STOMACH RESIDUAL AND LAB RESULTS WITH ORDERS. SEE NOTES
[2019-12-10] MEDS: PANTOPRAZOLE SODIUM 40 MG VIAL IV SCH ×2 (12:21→21:14)
[2019-12-10] MEDS: ACETAMINOPHEN 325 MG TABLET GT PRN (13:22)
[2019-12-10] MEDS ORDERED: BARIUM SULFATE 148 GM SUSP.RECON PO ONE (14:32)
[2019-12-10] MEDS ORDERED: BARIUM SULFATE 240 ML ORAL.SUSP PO ONE (14:32)
--- NOTE | 2019-12-10 16:00 | NUR ---
CONTINUE WITH [facility] STATUS, SR ON MONITOR. VIDEO SWALLOW DONE PER ST [facility] TO START PUREE/NECTAR THICK FOR SATIETY ONLY FOR BREAKFAST AND LUNCH. EDUCATION GIVEN TO FAMILY. PER HOSPITALIST HOLD FEEDING FOR NOW DUE TO HIGH VOLUME RESIDUAL
[2019-12-10] MEDS: Z GUARD REMEDY PASTE 57 GM TUBE TOP PRN (17:19)
--- NOTE | 2019-12-10 18:01 | NUR ---
LATEST JJ RESIDUAL @ 1800= 200 ML, GT RESIDUAL= 50 ML
[2019-12-10] MEDS: INSULIN GLARGINE,HUM 300 UNITS/3 ML CARTRIDGE SQ SCH (21:00)
[2019-12-10] MEDS: SENNOSIDES 1 TABLET GT SCH (21:00)
[2019-12-10] MEDS: ASCORBIC ACID 500 MG TABLET GT SCH (21:14)
[2019-12-10] MEDS: ATORVASTATIN 40 MG TABLET GT SCH (21:14)
[2019-12-10] MEDS: MULTIVIT, IRON, MIN NO. 8, FA TABLET GT SCH (21:14)
[2019-12-11 01:10] VITALS: BP 115/59
[2019-12-11] MEDS: POLYVINYL ALCOHOL OPHT DROPS 15 ML BOTTLE EACHEYE SCH ×4 (02:59→22:02)
[2019-12-11] MEDS: VANCOMYCIN IV 1,000 MG in IV DEXTROSE 5% 250 ML IV SCH ×2 (03:00→23:04)
[2019-12-11 04:00] VITALS: BP 125/65
[2019-12-11] MEDS: PIPERACILLIN/TAZOBACTAM/D5W 3.375 G in IV DEXTROSE 5% 50 ML IV SCH ×3 (06:04→21:34)
[2019-12-11] MEDS: BLOOD SUGAR DIAGNOSTIC 1 EACH STRIP VI SCH ×3 (06:04→18:31)
[2019-12-11 06:28] LABS: BASOPHILS # (AUTO) 0.1 K/uL (0.0-8.0); BASOPHILS % (AUTO) 0.8 % (0.0-2.0); EOSINOPHILS # (AUTO) 0.2 K/uL (0.0-0.7); EOSINOPHILS % (AUTO) 2.5 % (0.0-7.0); LYMPHOCYTES # (AUTO) 2.2 K/uL (20.0-40.0); LYMPHOCYTES % (AUTO) 29.9 % (20.5-51.5); MEAN CORPUSCULAR HEMOGLOBIN 31.4 uug (23.8-33.4); MEAN CORPUSCULAR HGB CONC 34 g/dL (32.5-36.3); MONOCYTES # (AUTO) 0.4 K/uL (2.0-10.0); MONOCYTES % (AUTO) 5.7 % (0.0-11.0); NEUTROPHILS # (AUTO) 4.5 K/uL (1.8-8.9); NEUTROPHILS % (AUTO) 61.1 % (38.5-71.5); PLATELET COUNT (AUTO) 417 K/uL (152-348); RED BLOOD CELL COUNT(AUTO) 3.35 MIL/uL (4.06-5.63); WHITE BLOOD COUNT (AUTO) 7.4 K/uL (3.6-10.2)
[2019-12-11 06:35] LABS: PHOSPHOROUS 3.8 mg/dL (2.5-4.9); POTASSIUM 4.3 mmol/L (3.5-5.1)
[2019-12-11 06:40] LABS: HEMATOCRIT 31.1 % (36.7-47.1); HEMOGLOBIN 10.5 g/dL (12.5-16.3)
--- NOTE | 2019-12-11 06:46 | NUR ---
KEPT RESTRAINTS ON TO PREVENT PT FROM PULLING OUT ANY LINES, GETS A HOLD OF ANYTHING Addendum: 12/11/19 at 0647 by ALE KNIGHT RN NOTE ON WRONG PT
[2019-12-11 07:30] VITALS: BP 129/63
--- NOTE | 2019-12-11 08:00 | NUR ---
Pt A/O x2 to person and place. Pt denied any pain or discomfort at this time. No distress noted or reported. VS stABLE. Inline suctioned trach. Scant amount thin white secretions, but pt with productive cough and then noted moderate amount thick yellow sputum. Aspiration and Seizure precautions in place. No SZ activity noted. Noted 40 cc green residual from pt's G tube. Returned residual per MD orders. All safety precautions in place. Monitoring continued.
[2019-12-11] MEDS: CHLORHEXIDINE GLUCONATE 15 ML MOUTHWASH MM SCH ×2 (08:39→17:45)
[2019-12-11] MEDS: LEVETIRACETAM 500 MG/5 ML LIQUID UDC GT SCH ×2 (08:39→21:30)
[2019-12-11] MEDS: SPIRONOLACTONE 25 MG TABLET GT SCH ×2 (08:39→21:30)
[2019-12-11] MEDS: PANTOPRAZOLE SODIUM 40 MG VIAL IV SCH ×2 (08:39→21:31)
[2019-12-11] MEDS: FERROUS SULFATE 300 MG/5 ML LIQUID UDC GT SCH ×2 (08:39→17:45)
[2019-12-11] MEDS: TRIAMCINOLONE ACET 0.1% OINT 60 GM TUBE TP SCH ×2 (08:41→17:46)
--- NOTE | 2019-12-11 11:06 | NUR ---
CLINICAL PHARMACY NOTE: VANCOMYCIN PHARMACY TO DOSE Subjective: To continue vancomycin in this 84 y/o male for indication of osteomyelitis. Also on zosyn Objective: weight 58kg height 170cm BUN/SCr 13/1.0 wbc 7.4 temp 97.9 Trough on 12/08 at 1430: 16.7 Assessment/Plan Since renal function has remained stable and vanco trough level is within therapeutic range, will continue same dose of vanco 1gm IVPB q20hrs for now. Will monitor renal function & adjust as appropriate. Will follow
[2019-12-11 11:20] VITALS: BP 133/69
--- NOTE | 2019-12-11 12:00 | NUR ---
Pt denied any pain or discomfort at this time. No distress noted or reported. VS stable. In-line suctioned trach. Scant amount thin white secretions, but pt still with productive cough and then noted moderate amount thick yellow sputum. Called RT to change tubing for T-Piece as large amount of dried sputum had accumulated. Suctioned T-piece area as much as possible with [place]. RT changed t-piece Tubing. Aspiration and Seizure precautions in place. No SZ activity noted. Noted 125 cc green residual from pt's G tube. Returned residual per MD orders. All safety precautions in place. Monitoring continued.
[2019-12-11] MEDS ORDERED: DIATR MEGLU/DIATRIZOATE SODIUM 30 ML SOLUTION ONE (13:24)
[2019-12-11] MEDS ORDERED: SIMETHICONE 80 MG TAB.CHEW GT PRN (14:45)
[2019-12-11] MEDS ORDERED: SIMETHICONE 80 MG TAB.CHEW PO PRN (14:45)
[2019-12-11] MEDS: ACETAMINOPHEN 325 MG TABLET GT PRN (15:54)
[2019-12-11 16:00] VITALS: BP 120/70
--- NOTE | 2019-12-11 18:32 | NUR ---
Notified Dr. Zambrano re: residual of 1000 ml green liquid from G tube. Ordered to discard all of residual instead of returning 250 ml residual to G tube. Pt getting last X-ray done now.
[2019-12-11] MEDS: IV D5/ 0.9% NACL 1,000 ML IV PRN (19:56)
[2019-12-11 20:55] VITALS: BP 126/70
[2019-12-11] MEDS: SENNOSIDES 1 TABLET GT SCH (21:00)
[2019-12-11] MEDS: INSULIN GLARGINE,HUM 300 UNITS/3 ML CARTRIDGE SQ SCH (21:00)
[2019-12-11] MEDS: ATORVASTATIN 40 MG TABLET GT SCH (21:30)
[2019-12-11] MEDS: MULTIVIT, IRON, MIN NO. 8, FA TABLET GT SCH (21:30)
[2019-12-11] MEDS: ASCORBIC ACID 500 MG TABLET GT SCH (21:30)
[2019-12-12] VITALS (7 sets, daily range): BP systolic 120–139; BP diastolic 41–69
[2019-12-12] MEDS: BLOOD SUGAR DIAGNOSTIC 1 EACH STRIP VI SCH ×4 (00:22→17:17)
[2019-12-12] MEDS: POLYVINYL ALCOHOL OPHT DROPS 15 ML BOTTLE EACHEYE SCH ×4 (03:00→21:27)
[2019-12-12] MEDS: PIPERACILLIN/TAZOBACTAM/D5W 3.375 G in IV DEXTROSE 5% 50 ML IV SCH ×3 (05:06→21:36)
[2019-12-12] MEDS: ACETAMINOPHEN 325 MG TABLET GT PRN (05:06)
[2019-12-12] MEDS: INSULIN REGULAR, HUMAN 300 UNIT/3 ML VIAL SQ PRN ×2 (05:20→11:40)
--- NOTE | 2019-12-12 05:51 | NUR ---
END OF SHIFT REPORT Patient rested well in between care; no acute distress; trache care done; GT site dressing done; repositioned for comfort; VSS; family at bedside; residual of JTUBE remains 150ml q4h and GT 75 ml q4h; incontinence care done;
--- NOTE | 2019-12-12 07:27 | NUR ---
Pt seen by Dr Zambrano; assessed GT and JT; spoke to patient's daughter; Dr Zambrano requested for a regular Gtube; Dr Zambrano replaced Gt/JT with regular GTube at bedside;
--- NOTE | 2019-12-12 07:40 | NUR ---
ordered Reglan and to restart GT feeding at 1000H; WENDY Pearce will put in orders as instructed
[2019-12-12] MEDS: CHLORHEXIDINE GLUCONATE 15 ML MOUTHWASH MM SCH ×2 (09:03→17:06)
[2019-12-12] MEDS: PANTOPRAZOLE SODIUM 40 MG VIAL IV SCH ×2 (09:03→21:27)
[2019-12-12] MEDS: FERROUS SULFATE 300 MG/5 ML LIQUID UDC GT SCH ×2 (09:03→17:00)
[2019-12-12] MEDS: LEVETIRACETAM 500 MG/5 ML LIQUID UDC GT SCH (09:03)
[2019-12-12] MEDS: SPIRONOLACTONE 25 MG TABLET GT SCH ×2 (09:03→20:41)
[2019-12-12] MEDS: TRIAMCINOLONE ACET 0.1% OINT 60 GM TUBE TP SCH ×2 (09:05→17:18)
--- NOTE | 2019-12-12 09:06 | NUR ---
CLINICAL PHARMACY NOTE: VANCOMYCIN PHARMACY TO DOSE Subjective: To continue vancomycin in this 84 y/o male for indication of osteomyelitis. Also on zosyn Objective: weight 58kg height 170cm BUN/SCr 13/1.0 (12/11) wbc 7.4 (12/11) temp 98.2 Trough on 12/08 at 1430: 16.7 Assessment/Plan Will continue same dose of vanco 1gm IVPB q20hrs for now. Will monitor renal function (BMP on order for tomorrow 12/12) & adjust as appropriate. Will follow Addendum: 12/12/19 at 1029 by DONNA DUMONT ADM LABS FROM TODAY: BUN 13 SRCR 1.1 WBC 6.4 SINCE SRCR HAS INCREASED, WILL REPEAT VANCO TROUGH LEVEL TODAY AT 1830- RN HAS BEEN INFORMED TO HOLD 1900 DOSE IF VANCO TROUGH LEVEL ABOVE 20 MCG/ML. PHARMACY SHALL REVIEW THE LEVEL IN AM & ADJUST THE DOSE IF NEEDED.
[2019-12-12 09:41] LABS: BASOPHILS # (AUTO) 0.1 K/uL (0.0-8.0); BASOPHILS % (AUTO) 0.9 % (0.0-2.0); EOSINOPHILS # (AUTO) 0.1 K/uL (0.0-0.7); EOSINOPHILS % (AUTO) 1.8 % (0.0-7.0); HEMATOCRIT 34.2 % (36.7-47.1); HEMOGLOBIN 11.4 g/dL (12.5-16.3); LYMPHOCYTES # (AUTO) 1.9 K/uL (20.0-40.0); LYMPHOCYTES % (AUTO) 29.4 % (20.5-51.5); MEAN CORPUSCULAR HGB CONC 33 g/dL (32.5-36.3); MEAN CORPUSCULAR VOLUME 93.6 fL (73.0-96.2); MONOCYTES # (AUTO) 0.4 K/uL (2.0-10.0); MONOCYTES % (AUTO) 7.1 % (0.0-11.0); NEUTROPHILS # (AUTO) 3.9 K/uL (1.8-8.9); NEUTROPHILS % (AUTO) 60.8 % (38.5-71.5); PLATELET COUNT (AUTO) 463 K/uL (152-348); RED BLOOD CELL COUNT(AUTO) 3.66 MIL/uL (4.06-5.63); WHITE BLOOD COUNT (AUTO) 6.4 K/uL (3.6-10.2)
[2019-12-12 09:51] LABS: BILIRUBIN,TOTAL 0.4 mg/dL (0.2-1.0); CREATININE 1.1 mg/dL (0.6-1.3); MAGNESIUM 1.9 mg/dL (1.8-2.4); PHOSPHOROUS 3.6 mg/dL (2.5-4.9); POTASSIUM 3.8 mmol/L (3.5-5.1); TOTAL PROTEIN, SERUM 6.7 g/dL (6.4-8.2)
[2019-12-12] MEDS: VITAL AF 1.2 1,000 ML LIQUID GT PRN (10:43)
--- NOTE | 2019-12-12 10:56 | NUR ---
A call to radiology to follow up on small bowel follow through. Spoke with Brady who'll call for finalized reading. Addendum: 12/12/19 at 1417 by GIOVANNI BARTON RN call made at around [phone] and documented at the above time.
--- NOTE | 2019-12-12 11:11 | NUR ---
PT's daughter and DPOA MsMikki Scott at bedside and she was given copies of latest labs, and imaging reading as requested. ( consent for release of information verified).
[2019-12-12] MEDS: IV D5/ 0.9% NACL 1,000 ML IV PRN (11:17)
--- NOTE | 2019-12-12 12:30 | NUR ---
patient with residual of 180cc attending N.P. in the unit and informed, orders to continue with current rate of feeding received and continue to check for residuals as ordered.
--- NOTE | 2019-12-12 13:10 | NUR ---
2nd call for results of small bowel test done yesterday this time ACCOUNTING REPRESENTATIVE Tana present and as informed by radiologist tech "She will call to follow up".
--- NOTE | 2019-12-12 13:35 | NUR ---
A call from Ms. Contreras on behalf of radiologist Dr. 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 Imaging results faxed from [facility] and informed to attending Attending PULMONARY PHYSICIAN Ms. Tana Broussard orders to place TF on hold received and implemented.
[2019-12-12] MEDS: HYDROCODONE/APAP 5-325MG TABLET GT PRN (13:58)
[2019-12-12] MEDS ORDERED: METOCLOPRAMIDE HCL 10 MG/2 ML VIAL IV SCH (14:00)
--- NOTE | 2019-12-12 19:10 | NUR ---
PATIENT ALERT VERBALLY RESPONSIVE. PATIENT ON TELE MONITOR SINUS RHYTHM AT THIS TIME. PATIENT REMAINS NPO, J TUBE INTACT, HANSEN CATH PATENT, PATIENT HAS NO COMPLAIN OF PAIN AT THIS TIME. CONT TO MONITOR.
[2019-12-12] MEDS: VANCOMYCIN IV 1,000 MG in IV DEXTROSE 5% 250 ML IV SCH (20:23)
--- NOTE | 2019-12-12 20:30 | NUR ---
NOTIFY DR. BECKFORD THAT PATIENT NPO AND PATIENT ON KEPPRA VIA J TUBE. CHANGE ORDER TO IV INSTEAD.
[2019-12-12] MEDS: ATORVASTATIN 40 MG TABLET GT SCH (20:41)
[2019-12-12] MEDS: SENNOSIDES 1 TABLET GT SCH (20:42)
[2019-12-12] MEDS: MULTIVIT, IRON, MIN NO. 8, FA TABLET GT SCH (20:42)
[2019-12-12] MEDS: ASCORBIC ACID 500 MG TABLET GT SCH (20:42)
[2019-12-12] MEDS ORDERED: LEVETIRACETAM IV 500 MG in IV DEXTROSE 5% 100 ML IV SCH (21:00)
[2019-12-12] MEDS: INSULIN GLARGINE,HUM 300 UNITS/3 ML CARTRIDGE SQ SCH (21:30)
[2019-12-12] MEDS ORDERED: LEVETIRACETAM 500 MG/5 ML VIAL IV ONE (21:38)
--- NOTE | 2019-12-12 23:19 | NUR ---
HEALTH SENIOR RECRUITER ACCOUNT RECEIVABLE ASSOCIATE CALLED AND SAID PATIENT WILL BE TRANSFER TO [facility] RM [id number], AND WILL SENT AMBULANCE FOR THE THE TRANSFER. DR BECKFORD WAS NOTIFY, AND PATIENT DAUGHTER ALE WAS ALSO NOTIFIED ABOUT THE TRANSFER. REPORT GIVEN TO [facility] [phone]. AND PATIENT WILL BE UNDER THE CARE OF DR. BRITTANIE QUACH. FAMILY WAS NOTIFIED.
--- NOTE | 2019-12-12 23:32 | NUR ---
PATIENT WAS CHECK AND SUCTIONED BY RT BEFORE LEAVING.
== END 2019-12-12 23:49 | disposition short-term general hospital (02) | DRG 871 ==
LOC: ER 02:30 → TELE-TD3 05:39
PROVIDERS: ADMIT Student in an Organized Health Care Education/Training Program; ATTEND Hospitalist
PROC: 30233N1 Transfusion of Nonautologous Red Blood Cells into Peripheral Vein, Percutaneous Approach (ICD-10-PCS; principal; 2019-12-08)
PROC: 0D2DXUZ Change Feeding Device in Lower Intestinal Tract, External Approach (ICD-10-PCS; 2019-12-12)
DX: A41.9 Sepsis, unspecified organism (principal); J18.9 Pneumonia, unspecified organism; G93.41 Metabolic encephalopathy; I21.A1 Myocardial infarction type 2; J96.20 Acute and chronic respiratory failure, unspecified whether with hypoxia or hypercapnia; E44.0 Moderate protein-calorie malnutrition; I69.354 Hemiplegia and hemiparesis following cerebral infarction affecting left non-dominant side; K94.13 Enterostomy malfunction; I23.6 Thrombosis of atrium, auricular appendage, and ventricle as current complications following acute myocardial infarction; J98.11 Atelectasis; R65.20 Severe sepsis without septic shock; R13.10 Dysphagia, unspecified; I25.2 Old myocardial infarction; J40 Bronchitis, not specified as acute or chronic; I25.10 Atherosclerotic heart disease of native coronary artery without angina pectoris; G47.419 Narcolepsy without cataplexy; G40.909 Epilepsy, unspecified, not intractable, without status epilepticus; F03.90 Unspecified dementia, unspecified severity, without behavioral disturbance, psychotic disturbance, mood disturbance, and anxiety; E83.42 Hypomagnesemia; E87.6 Hypokalemia; E78.5 Hyperlipidemia, unspecified; R19.5 Other fecal abnormalities; D64.9 Anemia, unspecified; Z93.0 Tracheostomy status; Z79.4 Long term (current) use of insulin; Z98.890 Other specified postprocedural states
CPT/HCPCS: 36415; 70030-TC; 71045; 74230; 74250; 83605; 83735; 84100; 85025; 85730; 86850; 86900; 86901; 86920; 87040; 87086; 87400; 93005; 93307; A4217; A4663; C9113; G0378; J0696; J1580; J1815; J1953; J2405; J2543; J3370; J3475; J3490; J3590; J7030; J7040; J7042; J7050; J7060; J8597; P9016-BL; P9021; Q9963; Q9967